=== PATIENT | female | born 1980 | race African-American/Black ===

== ENCOUNTER 2018-05-13 05:03 | Inpatient (IN) ==
--- NOTE | 2018-05-13 05:06 | HISTORY AND PHYSICAL ---
HISTORY OF PRESENT ILLNESS: The patient is a 37-year-old, black female, G 4, P 3, at 39 weeks gestation with a history of x3, who is scheduled for a repeat . Patient reports she does not want her tubes tied. PAST MEDICAL HISTORY: Significant for chronic hypertension, as well as gestational diabetes. PAST SURGICAL HISTORY: Significant for x3, as well as breast reduction and a D and C . PAST OB HISTORY: G 4, P 3, x3. READINESS PARAPROFESSIONAL HISTORY: Menarche at age 12. FAMILY HISTORY: Significant for high blood pressure, as well as diabetes mellitus. SOCIAL HISTORY: Tobacco use: None. Alcohol use: None. MEDICATIONS: vitamins, as well as a labetalol 100 mg b.i.d. and glyburide 5 mg daily. ALLERGIES: No known drug allergies. PHYSICAL EXAMINATION: VITAL SIGNS: Height 5 feet 1 inch, weight 198 pounds. Blood pressure 122/73, pulse of 80, respirations 20. heart rate 126. HEENT: Pupils equal, round, reactive to light and accommodation. Extraocular movements intact. Oropharynx clear. NECK: Supple. No thyromegaly. LUNGS: Clear to auscultation. HEART: Regular rate and rhythm. ABDOMEN: Gravid, nontender. EXTREMITIES: No clubbing, cyanosis, or edema noted. NEUROLOGIC: Cranial nerves 2-12 grossly intact. Motor 5/5. ASSESSMENT/PLAN: A 37-year-old, black female, G 4, P 3, at 39 weeks gestation for repeat section. Patient has a history of three prior sections. Patient counseled about the risks of surgery, including bleeding, infection, bowel or bladder injury. Surgery is scheduled for 05/13/2018. cc: Percy Carbajal III, MD
[2018-05-13] MEDS ORDERED: KEFZOL 1 GM/D5W 1 GM/50 ML IVPB IV PRN (05:21)
[2018-05-13] MEDS ORDERED: REGLAN PO ONE (05:21)
[2018-05-13] MEDS ORDERED: PEPCID PO ONE (05:21)
[2018-05-13] MEDS: LR 1,000 ML IV SCH ×2 (05:35→07:45)
[2018-05-13 05:50] LABS: URINE SOURCE VOIDED
[2018-05-13 05:52] LABS: EOS# 0.24 X1000 (0.0-0.7); EOS% 4.4 % (0.0-10.0); HEMATOCRIT 30.1 % (37.0-47.0); HEMOGLOBIN 9.3 g/dL (12.0-16.0); IMM GRAN# 0.02 X1000 (0.0-0.04); IMM GRAN% 0.4 % (0.0-0.5); LYMPH# 1.41 X1000 (1.2-3.4); MCH 23.5 PG (27-31); MCHC 30.9 g/dL (33-37); MONO# 0.61 X1000 (0.11-0.59); MONO% 11.2 % (1.7-9.3); MPV 9.7 FL (7.4-10.4); NEUT# 3.15 X1000 (1.4-6.5); PLT 286 X1000 (130-400); RBC 3.96 XMIL (4.2-5.4); RDW 14.9 % (11.5-14.5); WBC 5.43 X1000 (4.8-10.8)
[2018-05-13 06:01] LABS: BILIRUBIN URINE NEGATIVE (NEGATIVE); BLOOD URINE NEGATIVE (NEGATIVE); CLARITY CLEAR (CLEAR); COLOR YELLOW; GLUCOSE URINE NEGATIVE (NEGATIVE); KETONE URINE NEGATIVE (NEGATIVE); LEUKOCYTES URINE TRACE (NEGATIVE); NITRITE URINE NEGATIVE (NEGATIVE); PH URINE 6.5; PROTEIN URINE TRACE mg/dL (NEGATIVE); SP GRAVITY URINE 1.015; UROBILINOGEN URINE NORMAL
[2018-05-13] MEDS ORDERED: LR 2,000 ML ONE (06:17)
[2018-05-13 06:20] LABS: AGAP 13; ALBUMIN 3.3 g/dL (3.5-5.0); ALKALINE PHOSPHATASE 167 U/L (32-104); BUN 7 mg/dL (8-22); CALCIUM 8.9 mg/dL (8.8-10.2); CHLORIDE 105 mmol/L (98-107); COSMO 272; CREATININE 0.7 mg/dL (0.5-0.9); ESTIMATED GFR > 60; GLUCOSE 77 mg/dL (70-104); GOT 17 U/L (10-30); GPT 9 U/L (10-36); POTASSIUM 4.3 mmol/L (3.5-5.1); SODIUM 138 mmol/L (136-145); TCO2 21 mmol/L (25-35); TOTAL PROTEIN 6.3 g/dL (6.3-8.3)
[2018-05-13] MEDS ORDERED: BICITRA PO ONE (06:30)
[2018-05-13] MEDS ORDERED: REGLAN IV ONE (06:30)
[2018-05-13] MEDS ORDERED: DURAMORPH ONE (06:44)
[2018-05-13] MEDS ORDERED: DIPRIVAN 1% ONE (06:46)
[2018-05-13] MEDS ORDERED: SODIUM CHLORIDE 0.9% 10 ML ONE (07:43)
[2018-05-13] MEDS ORDERED: QUELICIN (DOSE) ONE (07:43)
[2018-05-13] MEDS ORDERED: ROBINUL ONE (07:43)
[2018-05-13] MEDS ORDERED: NEO-SYNEPHRINE ONE (07:43)
[2018-05-13] MEDS ORDERED: PITOCIN ONE (07:43)
[2018-05-13 07:47] LABS: UR AMPHETAMINES QUAL NONE DETECTED (NONE DETECT); UR BARBITUATES QUAL NONE DETECTED (NONE DETECT); UR BENZODIAZEPIN QUAL NONE DETECTED (NONE DETECT); UR COCAINE QUAL NONE DETECTED (NONE DETECT); UR METHADONE QUAL NONE DETECTED (NONE DETECT)
[2018-05-13 07:48] LABS: UR CANNABINOIDS QUAL NONE DETECTED (NONE DETECT); UR METHAMPHETAMINE QUAL NONE DETECTED (NONE DETECT); UR OPIATES QUAL NONE DETECTED (NONE DETECT); UR OXYCODONE QUAL NONE DETECTED (NONE DETECT); UR PCP QUAL NONE DETECTED (NONE DETECT); UR PROPOXYPHENE QUAL NONE DETECTED (NONE DETECT); UR TCA QUAL NONE DETECTED (NONE DETECT)
[2018-05-13] MEDS ORDERED: EPHEDRINE ONE ×2 (08:04→08:31)
[2018-05-13] MEDS ORDERED: BOOSTRIX VACCINE IM ONE (08:10)
[2018-05-13] MEDS ORDERED: PITOCIN IM PRN (08:10)
[2018-05-13] MEDS ORDERED: MYLICON PO PRN (08:10)
[2018-05-13] MEDS ORDERED: DEMEROL IM PRN (08:10)
[2018-05-13] MEDS ORDERED: NORCO-5 PO PRN (08:10)
[2018-05-13] MEDS ORDERED: ATARAX PO PRN (08:10)
[2018-05-13] MEDS ORDERED: PHENERGAN IM PRN (08:10)
[2018-05-13] MEDS ORDERED: HYDROXYZINE IM PRN (08:10)
[2018-05-13] MEDS ORDERED: DULCOLAX PR PRN (08:10)
[2018-05-13] MEDS ORDERED: DEMEROL PO PRN ×2 (08:10)
[2018-05-13] MEDS ORDERED: M-M-R II VACCINE SUBQ ONE (08:10)
[2018-05-13] MEDS ORDERED: PITOCIN 20 UNITS/NS 20 UNITS/1,000 ML IV.SOLN IV ONE (08:10)
[2018-05-13] MEDS ORDERED: AMBIEN PO PRN (08:10)
[2018-05-13] MEDS ORDERED: PITOCIN 10 UNITS/LR 10 UNIT/1,000 ML IV.SOLN IV SCH (08:15)
[2018-05-13] MEDS: TORADOL IV SCH ×3 (08:37→20:55)
--- NOTE | 2018-05-13 08:59 | OPERATIVE NOTE ---
PROCEDURE DATE: 05/13/2018 PREOPERATIVE DIAGNOSIS: Intrauterine (IUP) at 39 and 1/7 weeks with history of C- section for elective repeat . POSTOPERATIVE DIAGNOSES: 1. Intrauterine (IUP) at 39 and 1/7 weeks with history of for elective repeat . 2. Operative delivery of a female 8 pounds 10 ounces. 's of 10 and 10 at 07:22 on 05/13/2018. PROCEDURE: Repeat low-transverse . SURGEON: Percy Carbajal III, MD DIRECTOR OF STAFF DEVELOPMENT: DO Jayant ANESTHESIA: Spinal, Dr. Palencia. FINDINGS: Normal-appearing uterus, tubes, and ovaries. COMPLICATIONS: None. ESTIMATED BLOOD LOSS: 500 mL. SPECIMENS REMOVED: None. DRAINS: Leonard to straight drain. COUNTS: All counts were correct x3. INDICATIONS: Patient is a 37-year-old black female, G4, P3, at 39 and 1/7 weeks with a history of x3 for repeat . Patient counseled about the risks of surgery, including bleeding, infection, bowel or bladder injury. DESCRIPTION OF PROCEDURE: The patient was taken to labor delivery OR where spinal anesthesia was placed. She was placed in supine position with a roll under right hip. Leonard catheter was placed, and then she was prepped and draped in a sterile fashion. A Pfannenstiel skin incision was made on lower abdomen using scalpel after the skin was tested to make sure the spinal anesthesia was adequate. The Pfannenstiel incision was taken down sharply to the fascia layer. A small janett was made in the rectus fascia which was extended bilaterally by curved Dobson scissors and pickups. Then, the blunt and sharp dissection of the superior and inferior aspects of the rectus fascia was performed. Then using 2 Frank's we were able to advance into the peritoneal cavity by gently excising from fascial into the peritoneal layer. The peritoneal incision was then extended superiorly and inferiorly with care taken to avoid the bladder. Bladder reflection was then developed using the DeBakey's and Metzenbaum scissors. Then, the bladder blade was placed into the abdominal cavity. The transverse incision was made on lower uterine segment. Using the scalpel, this was then extended bilaterally by using surgeon's fingers. Clear fluid was noted upon entry into the amniotic cavity. Then, the head was then elevated towards the hysterotomy site. With gentle fundal pressure, the head was delivered atraumatically with bulb suction of nose and mouth. Then, the rest of the body was delivered atraumatically. The umbilical cord was clamped twice and cut. Infant handed to nursery nurse in attendance for delivery. Cord blood sample was obtained at this time. Then, the placenta was then manually extracted. The uterus was then exteriorized. Wet lap was placed around the uterus. Dry lap was then used to curette the uterine cavity, clots and debris. Uterine incision was then closed using 0 chromic in a running, locking fashion x1. A small area of oozing was noted on the left corner, and made hemostatic with a [id number] stitch. The posterior cul-de-sac was then irrigated copiously, and then the uterus was replaced back into the abdominal cavity. The pericolic gutters were cleansed using moist lap sponges bilaterally. The uterine incision and bladder reflection were inspected, and good hemostasis was noted. The peritoneal incision was then closed using a 2- 0 chromic in a running fashion x1. The rectus muscle was then reapproximated using interrupted stitches of 2-0 chromic. The fascia layer was then closed using 0 PDS in a running fashion x1. Subcutaneous layer was then irrigated, and electrocautery was used to obtain hemostasis. The skin was then reapproximated using heavenly. Patient tolerated the procedure well and was taken to the recovery room in stable condition. All counts were correct x3. cc: Percy Carbajal III, MD
[2018-05-13] MEDS ORDERED: DIABETA PO SCH (09:00)
[2018-05-13] MEDS: MYLICON PO SCH ×4 (13:04→20:57)
[2018-05-13] MEDS: TRANDATE PO SCH (14:34)
[2018-05-13] MEDS: PITOCIN 10 UNITS/NS 1,000 ML IV SCH (16:40)
[2018-05-13] MEDS ORDERED: ZOFRAN IV PRN ×2 (18:15)
[2018-05-13] MEDS ORDERED: ZOFRAN ODT PO PRN (18:15)
[2018-05-13] MEDS ORDERED: BENADRYL IV PRN (18:15)
[2018-05-13] MEDS ORDERED: NARCAN INJ PRN (18:15)
[2018-05-13] MEDS: PERICOLACE PO SCH (20:57)
[2018-05-14] MEDS: TRANDATE PO SCH ×2 (00:25→16:28)
[2018-05-14] MEDS: PITOCIN 10 UNITS/NS 1,000 ML IV SCH (00:26)
[2018-05-14] MEDS: TORADOL IV SCH (02:58)
[2018-05-14 06:55] LABS: BASO# 0.01 X1000 (0.0-0.2); BASO% 0.1 % (0.0-0.8); EOS# 0.17 X1000 (0.0-0.7); EOS% 1.8 % (0.0-10.0); HEMATOCRIT 26.8 % (37.0-47.0); HEMOGLOBIN 8.1 g/dL (12.0-16.0); IMM GRAN# 0.01 X1000 (0.0-0.04); IMM GRAN% 0.1 % (0.0-0.5); LYMPH# 0.78 X1000 (1.2-3.4); LYMPH% 8.5 % (20.5-51.1); MCH 23.3 PG (27-31); MCHC 30.2 g/dL (33-37); MCV 77.2 FL (81-99); MONO# 0.73 X1000 (0.11-0.59); MONO% 7.9 % (1.7-9.3); NEUT# 7.49 X1000 (1.4-6.5); NEUT% 81.6 % (42.2-75.2); PLT 244 X1000 (130-400); RBC 3.47 XMIL (4.2-5.4); RDW 14.9 % (11.5-14.5); WBC 9.19 X1000 (4.8-10.8)
[2018-05-14] MEDS: NORCO-10 PO PRN ×4 (07:30→20:54)
[2018-05-14] MEDS ORDERED: LR 1,000 ML IV SCH (08:10)
[2018-05-14] MEDS: DIABETA PO SCH (08:27)
[2018-05-14] MEDS: MYLICON PO SCH ×4 (08:28→20:32)
[2018-05-14] MEDS: MOTRIN PO PRN ×2 (12:06→20:32)
[2018-05-14] MEDS: NEOSPORIN OINTMENT PACKET TOP SCH (20:32)
[2018-05-14] MEDS: PERICOLACE PO SCH (20:32)
[2018-05-15] MEDS: TRANDATE PO SCH ×3 (00:43→21:05)
[2018-05-15] MEDS: NORCO-10 PO PRN ×5 (00:47→21:11)
[2018-05-15] MEDS: MOTRIN PO PRN ×2 (06:40→17:39)
[2018-05-15] MEDS: DIABETA PO SCH (10:01)
[2018-05-15] MEDS: NEOSPORIN OINTMENT PACKET TOP SCH (10:01)
[2018-05-15] MEDS: MYLICON PO SCH ×4 (10:02→21:05)
[2018-05-15] MEDS: PERICOLACE PO SCH (21:05)
[2018-05-16] MEDS: MOTRIN PO PRN (04:15)
[2018-05-16] MEDS: NORCO-10 PO PRN (04:16)
[2018-05-16 07:55] VITALS: BP 141/62
[2018-05-16] MEDS: DIABETA PO SCH (08:14)
[2018-05-16] MEDS: MYLICON PO SCH (08:14)
[2018-05-16] MEDS: TRANDATE PO SCH (08:14)
--- NOTE | 2018-05-17 05:03 | DISCHARGE SUMMARY ---
ADMISSION DATE: 05/13/2018 DISCHARGE DATE: 05/16/2018 DISCHARGE DIAGNOSES: 1. Term gestation. 2. Prior section. 3. Desire for permanent sterilization. ( [*] please verify-op report does not reflect) PROCEDURE PERFORMED: Repeat section with bilateral tubal ligation. SUMMARY: A 37-year-old 4, para 3, was admitted at term with a history of prior section x3 for repeat plus BTL. Surgery was uncomplicated. She was delivered of a female infant with weight 8 pounds 10 ounces and 's of 10 and 10. Her postoperative course was uneventful. Her hemoglobin was 9.3 antepartum, 8.1 postop. On the day of discharge, she was passing some flatus but had not yet had a bowel movement. PHYSICAL EXAM: Revealed a nontender fundus and a soft abdomen. Incision was clean. DISCHARGE DISPOSITION: She is discharged home in good condition on the morning of postoperative day #3. DIET: Regular. ACTIVITY: Pelvic rest. MEDICATIONS: [place] 5/325, one p.o. q. 4 hours p.r.n., #20; iron sulfate 325 mg p.o. b.i.d., #60; Motrin 600 mg p.o. t.i.d. p.r.n. #30. FOLLOW-UP: Follow up will be with Dr. Carbajal in 1 week for staple removal. cc: MD Percy Zuñiga III, MD
== END 2018-05-16 11:55 | disposition home or self-care (01) | DRG 787 ==
LOC: P.LD 05:03
PROVIDERS: ADMIT Obstetrics & Gynecology; ATTEND Obstetrics & Gynecology
CPT/HCPCS: 80053; 80104; 80301; 80305; 81003; 82947; 85025; 86592; 90707; 94761; 94799; A9270; G0431; G0434; G0477; J0330; J0690; J1885; J2274; J2275; J2370; J2590; J2765; J7120; Q9974